=== PATIENT | male | born 1940 | race Caucasian/White ===

== ENCOUNTER → 2017-05-29 | Outpatient (CLI) | payer OTHER ==
[~2017-05-29] VITALS: Ht 185.4 cm; Wt 88.5 kg
[~2017-05-29] MED LIST: ATENOLOL50 MG PO; BENEFIBER98 GM PO; CIPRO500 MG PO; DOCUSATE SODIU100 MG PO; MULTIVITAMIN1 EAC2 PO; SIMVASTATIN40 MG PO; TRICOR145 MG PO; XARELTO20 MG PO
[2017-05-29 09:01] LABS: INTER. NORMALIZED RATIO 1.1; PROTHROMBIN TIME 10.8 (9.2-11.2); PTT 25.9 (25-32)
[2017-05-29 09:04] LABS: HEMATOCRIT 38.2 % (38.0-50.0); MCH 34.9 PG (29.0-34.0); MCV 102.4 FL (86-99); RBC DIS.WIDTH-CV 16.4 % (11.8-14.6); RBC DIS.WIDTH-SD 62.6 % (39-53); RED BLOOD COUNT 3.73 M/uL (4.00-5.50)
[2017-05-29 10:09] LABS: ABS NEUTROPHIL COUNT 0.1; ANISOCYTOSIS 2+; ATYPICAL LYMPHOCYTE 12.8 %; BAND NEUTROPHILS 0.9 % (0-8.0); EOSINOPHIL ABS CT 0; EOSINOPHILS 0.9 % (0-5.0); IMM.PLATELET FRACTION 2.5 (1-7); INSTRUMENT ABS NEUTROPHIL CT 0.1 K/uL; LYMPHOCYTES 72.7 % (15.0-45.0); MACROCYTES 2+; OVALOCYTES 1+; PLAT.SUFFICIENCY DECREASED; POIKILOCYTOSIS 1+; SEG.NEUTROPHILS 11.8 % (46.0-76.0)
[2017-05-29 10:24] LABS: MEAN PLAT.VOLUME 9.2 uM^3 (9.0-12.4); PLATELET COUNT 49 K/uL (156-360)
== END | disposition home or self-care (01) ==
LOC: OPR 05-24 10:00 → EDSTATUS 09:00 → OPR 09:00
PROVIDERS: Internal Medicine Hematology & Oncology
DX: C92.00 Acute myeloblastic leukemia, not having achieved remission (principal); D46.9 Myelodysplastic syndrome, unspecified; Z79.01 Long term (current) use of anticoagulants; Z87.891 Personal history of nicotine dependence; Z86.718 Personal history of other venous thrombosis and embolism
CPT/HCPCS: 38221; G0364; 77012; 85007; 85025; 85610; 85730; J3010

== ENCOUNTER 2017-12-31 07:50 | Inpatient (IN) | payer OTHER ==
[~2017-12-31] VITALS: Ht 185.4 cm; Wt 90.1 kg
[2017-12-31] VITALS (7 sets, daily range): BP systolic 129–162; BP diastolic 58–78
[~2017-12-31 07:50] MED LIST changes: +SENNA LAXATIVE8.6 MG PO
[2017-12-31 08:47] LABS: HEMATOCRIT 21.7 % (38.0-50.0); HEMOGLOBIN 7.5 G/DL (12.5-16.6); MCH 37.1 PG (29.0-34.0); MCHC 34.6 G/DL (30.0-36.0); MCV 107.4 FL (86-99); RBC DIS.WIDTH-CV 17.2 % (11.8-14.6); RBC DIS.WIDTH-SD 67.9 % (39-53); RED BLOOD COUNT 2.02 M/uL (4.00-5.50)
[2017-12-31 08:49] LABS: WHITE BLOOD COUNT 0.8 K/uL (4.1-10.2)
[2017-12-31 09:01] LABS: TROP-I INTERPRETATION NEGATIVE; TROPONIN-I 0.02 ng/mL (0.0-0.30)
[2017-12-31 09:07] LABS: CHLORIDE 113 MEQ/L (99-109); SODIUM 141 MEQ/L (136-147)
[2017-12-31 09:13] LABS: CREATININE 1.1 MG/DL (0.6-1.3); GFR ESTIMATE (CALCULATED) > 59 mL/min/ (58.99-99999); GLUCOSE 112 mg/dL (70-99); UREA NITROGEN (BUN) 29 mg/dL (9-23)
[2017-12-31 09:57] LABS: IMM.PLATELET FRACTION 3.2 (1-7); PLAT.SUFFICIENCY VERY DECREASED
[2017-12-31 09:58] LABS: PLATELET COUNT 17 K/uL (156-360)
[2017-12-31] MEDS ORDERED: MILK OF MAGN PO (10:16)
[2017-12-31 10:37] LABS: PHOSPHORUS 3.1 mg/dL (2.5-4.9)
[2017-12-31 13:52] LABS: TROP-I INTERPRETATION NEGATIVE; TROPONIN-I 0.06 ng/mL (0.0-0.30)
[2017-12-31 21:12] LABS: TROP-I INTERPRETATION NEGATIVE; TROPONIN-I 0.06 ng/mL (0.0-0.30)
[2018-01-01] VITALS (9 sets, daily range): BP systolic 125–147; BP diastolic 61–85
[2018-01-01 05:43] LABS: TROP-I INTERPRETATION NEGATIVE; TROPONIN-I 0.05 ng/mL (0.0-0.30)
[2018-01-01 05:45] LABS: INTER. NORMALIZED RATIO 1.1
[2018-01-01 05:48] LABS: PTT 26.5 SEC (25-37)
[2018-01-01 06:07] LABS: HEMOGLOBIN 8.3 G/DL (12.5-16.6); MCH 34.4 PG (29.0-34.0); MCHC 34.6 G/DL (30.0-36.0); RBC DIS.WIDTH-CV 20.6 % (11.8-14.6); RED BLOOD COUNT 2.41 M/uL (4.00-5.50)
[2018-01-01 06:08] LABS: ALBUMIN 3.5 G/DL (3.2-4.8); ALKALINE PHOSPHATASE 29 IU/L (3-129); ALT (GPT) 9 IU/L (3-49); AST (GOT) 18 IU/L (2-34); CHLORIDE 108 MEQ/L (99-109); CREATININE 1.3 MG/DL (0.6-1.3); GFR ESTIMATE (CALCULATED) 57 mL/min/ (58.99-99999); GLUCOSE 103 mg/dL (70-99); MCV 99.6 FL (86-99); PLATELET COUNT 74 K/uL (156-360); POTASSIUM 4.1 MEQ/L (3.7-5.4); SODIUM 140 MEQ/L (136-147); TOTAL BILIRUBIN 1.3 MG/DL (0.0-1.0); TOTAL PROTEIN 5.7 G/DL (6.4-8.3); UREA NITROGEN (BUN) 23 mg/dL (9-23); WHITE BLOOD COUNT 0.6 K/uL (4.1-10.2)
[2018-01-01 13:14] LABS: ABS NEUTROPHIL COUNT 0.1; ANISOCYTOSIS 2+; ATYPICAL LYMPHOCYTE 0.9 %; BAND NEUTROPHILS 0.9 % (0-8.0); EOSINOPHIL ABS CT 0; EOSINOPHILS 1.7 % (0-5.0); LYMPHOCYTES 83.2 % (15.0-45.0); MACROCYTES 1+; NUCLEATED RBC'S 2.7; OVALOCYTES 1+; PLAT.SUFFICIENCY DECREASED; POIKILOCYTOSIS 1+; SEG.NEUTROPHILS 13.3 % (46.0-76.0); TEAR DROP CELLS 1+
== END 2018-01-01 15:55 | disposition home or self-care (01) | DRG 253 ==
LOC: EME 07:50 → 4SOUTH 09:33 → EDOF 09:33 → ENRESERV 09:39 → 4SOUTH 17:15
PROVIDERS: Internal Medicine
DX: I82.429 Acute embolism and thrombosis of unspecified iliac vein (principal); C92.00 Acute myeloblastic leukemia, not having achieved remission; I82.401 Acute embolism and thrombosis of unspecified deep veins of right lower extremity; D61.818 Other pancytopenia; E78.5 Hyperlipidemia, unspecified; K59.00 Constipation, unspecified; T45.1X5A Adverse effect of antineoplastic and immunosuppressive drugs, initial encounter; Z87.891 Personal history of nicotine dependence; Z86.718 Personal history of other venous thrombosis and embolism; Z79.899 Other long term (current) drug therapy; Z79.01 Long term (current) use of anticoagulants
CPT/HCPCS: 71045; 71046; 77012; 78582; 80048; 80053; 80061; 83735; 84100; 84484; 85007; 85027; 85610; 85730; 86850; 86900; 86901; 86920; 93005; 93970; 99281; 99285; A9540; A9567; C1769; C1894; J0690; J2250; J3010; P9016; P9035

== ENCOUNTER → 2018-02-28 | Outpatient (CLI) | payer OTHER ==
[~2018-02-28] MED LIST changes: +ACYCLOVIR400 MG PO; +DIFLUCAN200 MG PO; +MILK OF MAGN PO; +PRILOSEC20 MG PO
== END | disposition home or self-care (01) ==
DX: R13.10 Dysphagia, unspecified (principal); Z87.19 Personal history of other diseases of the digestive system; Z85.6 Personal history of leukemia; Z92.21 Personal history of antineoplastic chemotherapy
CPT/HCPCS: 92611 GN; G8996 GN; G8997 GN; G8998 GN